=== PATIENT | male | born 1930 | race Caucasian/White ===

== ENCOUNTER 2017-11-20 15:08 | Inpatient (IN) ==
--- NOTE | 2017-11-20 17:03 | P.CON ---
History of Present Illness Service: Hospitalist Consult date: 11/20/17 Requesting Physician: Barrett Hartmann Reason for Consult: Assist with medical management Primary Care Provider: UNKNOWN History of Present Illness: This is an 87yo male patient with a PMHX significant for hypertension, atrial fibrillation on Eliquis, gout, depression, dyslipidemia and hx of CVA in 2016 who was transferred from [facility] and admitted to the inpatient psychiatric unit for severe depressive symptoms. Hospitalist services have been consulted to assist with medical management. Patient is seen and examined. Patient has not had an appetite and has lost 40lbs over the past 4 months. Patient states he does not think he will have any better appetite here. He says he does not belong here. He has made statements he would be better off . He denies any recent illness. He denies any headache or dizziness. He denies any chest pain or shortness of breath. He denies any nausea, vomiting or abdominal pain. He denies any urinary difficulties, diarrhea or constipation. Per review of the outside medical records, patient has been refusing to eat, drink or take his medications. His has scheduled him an appointment to be seen by Neurologist for possible dementia. Patients TSH at outside facility was 3.62. UA was negative. Review of Systems All other systems reviewed negative except as stated in HPI [facility] - History History Provided By: Patient, Medical Record - Medical History Medical History: Medical History (Last Updated 11/20/17 @ 17:45 by Trish Archibald) Atrial fibrillation BPH (benign prostatic hyperplasia) Depression Dyslipidemia Gout History of CVA (cerebrovascular accident) Hypertension - Surgical History Surgical History: Surgical History (Last Updated 11/20/17 @ 17:27 by Trish Archibald) Hx of cholecystectomy - Family History Family History: Family History (Last Updated 11/20/17 @ 17:28 by Trish Archibald) Other Hypertension - Social History I have reviewed the patient's Social History: Yes - Tobacco History Second Hand Smoke Exposure: No Tobacco Use In Past 30 Days: No Smoking Status: Never smoker - Alcohol History How Often Do You Have a Drink Containing Alcohol: Never - Substance Use History Substance History: No History of Abuse - Travel History Recent Travel in the [facility] Within the Last 8 Weeks: No Recent Travel Out of the Country Within the Last 8 Weeks: No Medications and Allergies Allergies Allergy/AdvReac Type Severity Reaction Status Date / Time hydrochlorothiazide Allergy Unknown Dry Eye Verified 11/20/17 15:46 hydralazine Allergy Dry Eye Verified 11/20/17 15:49 Physical Exam Vital signs: Vital Signs 11/20/17 16:31 Temperature 97.5 F L Respiratory Rate 17 Blood Pressure 169/90 H Pulse Oximetry 97 Narrative: GENERAL: WDWN elderly male patient, in no acute distress. Awake and alert. +Dowager's hump. SKIN: Warm and dry. HEAD: Atraumatic. Normocephalic. EYES: Pupils equal and round. No scleral icterus. No injection or drainage. ENT: No nasal bleeding or discharge. Mucous membranes pink and moist. NECK: Trachea midline. CARDIOVASCULAR: Regular rate and rhythm. RESPIRATORY: No accessory muscle use. Clear to auscultation. Breath sounds equal bilaterally. GASTROINTESTINAL: Abdomen soft, non-tender, nondistended. Hepatic and splenic margins not palpable. MUSCULOSKELETAL: Extremities without clubbing, cyanosis, or edema. No obvious deformities. NEUROLOGICAL: Awake and alert. No obvious cranial nerve deficits. Motor grossly within normal limits. Able to move all extremities spontaneously. Normal speech. PSYCHIATRIC: Depressed mood. Flat affect. Calm and cooperative. Assessment and Plan - Plan 87yo male patient with a PMHX significant for hypertension, atrial fibrillation on Eliquis, gout, depression, dyslipidemia and hx of CVA in 2015 who was transferred from [facility] and admitted to the inpatient psychiatric unit for severe depressive symptoms. Hospitalist services have been consulted to assist with medical management. 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 We will continue to follow along with you. Discussed Condition With: patient, nursing staff
[2017-11-20] MEDS: Metoprolol Tartrate 25 MG Tablet PO SCH (20:23)
[2017-11-20] MEDS ORDERED: Aluminum/Magnesium/Simethacone Susp 30 ML UDC PO PRN (20:45)
[2017-11-20] MEDS ORDERED: Acetaminophen 325 MG Tablet PO PRN (20:45)
[2017-11-20] MEDS ORDERED: diazePAM 2 MG Tablet PO SCH (21:00)
[2017-11-21 09:27] LABS: Calcium 8.6 mg/dL (8.5-10.1); Carbon Dioxide 28.6 meq/L (21.0-32.0); Potassium 3.8 meq/L (3.5-5.1)
[2017-11-21 09:54] LABS: Chol/HDL Ratio 1.9 Ratio; HDL Cholesterol 71.4 mg/dL (40.0-60.0)
[2017-11-21] MEDS: Doxazosin 1 MG Tablet PO SCH ×2 (10:06→10:07)
[2017-11-21] MEDS: amLODIPine 5 MG Tablet PO SCH (10:09)
[2017-11-21] MEDS: Metoprolol Tartrate 25 MG Tablet PO SCH ×2 (10:09→22:07)
[2017-11-21] MEDS: Multivitamin/Minerals Therapeutic Tablet PO SCH (10:10)
[2017-11-21] MEDS: Allopurinol 100 MG Tablet PO SCH (10:10)
--- NOTE | 2017-11-21 10:50 | P.DIET ---
Nutritional Evaluation Type of nutrition evaluation: initial Nutrition screening: [place] Screening comments: 11/20 [place] Poor PO Intake Subjective Subjective Comments: Pt reports a 40lb wt loss over the past 4 months, states he has no appetite. Objective - Diagnosis Depression - Objective [place] body weight: 85 kg % IBW: 85 Body Weight Used for Calculations: Actual (72.2kg) Energy Needs - Lower Range (kCal/kg): 28 Energy Needs - Upper Range (kCal/kg): 33 Lower Limit kCal/kg (kCals): 2,022 Upper Limit kCal/kg (kCals): 2,383 Lower Limit Protein Factor (Grams per Kg): 1.1 Upper Limit Protein Factor (Grams per Kg): 1.3 Lower Protein Needs (Protein): 79 Upper Protein Needs (Protein): 94 Fluid Factor (ml/kg): 28 Estimated Fluid Needs (ml): 2,022 Dietitian Reviewed in Medical Record: Current diet, Curent medications, Intake & Output, Labs Diet Order: Cardiac Objective Comments: PMH: HTN, Afib, gout, depression, HLD, CVA in 2016 Meds include: Theragran M Assessment Assessment: Pt at nutritional risk r/t dx and significant wt loss over the past 4 months. Pt 's nutritional needs as assessed above. Yesterday his po was poor but this morning he ate 100% of his breakfast. Ensure Enlive with be added to his trays, each bottle provides 350kcals and 20gms protein. Agree with multivitamin. If po intake is inadequate, recommend considering an appetite stimulant. Will monitor po intake, clinical course. Recommendations: Cardiac diet with Enlive TID Recommend considering an appetite stimulant Dietitian to Monitor: Lab values, Supplement acceptance, Intake & Output, Weight change, PO Intake, Medical course
--- NOTE | 2017-11-21 12:22 | P.HPPSY ---
Provisional Diagnosis Admission Date: November 20, 2017 15:19 Competence Certification of Person's Competence To Provide Express and Informed Consent I have personally examined Santos Saleh JR, a person being served at [facility] on, November 21, 2017 1216. Express and informed consent means consent voluntarily given in writing, by a competent person, after sufficient explanation and disclosure of the subject matter involved to enable the person to make a knowing and willful decision without any element of force, fraud, deceit, duress, or other form of constraint or coercion. This person is 18 years of age or older, is not now known to be incompetent to consent to treatment with a guardian advocate, and does not have a health care surrogate or proxy currently making medical treatment decisions. I have found this person to be one of the following: [X] Competent to provide express and informed consent, as defined above, for voluntary admission to this facility and is competent to provide express and informed consent for treatment. He/she has the consistent capacity to make well reasoned, willful, and knowing decisions concerning his or her medical or mental health treatment. The person fully and consistently understands the purpose of the admission for examination/placement and is fully capable of personally exercising all rights assured under [place] Incompetent to provide express and informed consent to voluntary admission, and this is incompetent to provide express and informed consent to treatment. The person must be transferred to involuntary status and a petition for a guardian advocate filed with the Circuit Court. [] Refusing to provide express and informed consent to voluntary admission but is competent to provide express and informed consent for treatment. The person must be discharged or transferred to involuntary status. Form shall be completed within 24 hours of a person's arrival at the receiving facility and filed in the clinical record of each person: 1. Admitted on a voluntary basis 2. Permitted to provide express and informed consent to his/her own treatment 3. Allowed to transfer from involuntary to voluntary status 4. Prior to permitting a person to consent to his or her own treatment after having been previously found incompetent to consent to treatment. History of Present Illness Capacity: Has capacity Chief Complaint: Depression History of Present Illness: Patient is an 87-year-old with no psychiatric history. He presents today to the psychiatric unit for symptoms of depression. His noticed changes in his mood and behavior and was the instigator for his admission. Patient says his symptoms began 6 months ago. He is rather vague and says "life got caught up with me." Mood has been low, patient has been housebound, he is sleeping well, appetite is poor, lost 40 pounds in the last couple months. Patient has suicidal ideation that is passive in nature without intent or plan. Energy is low. There are no panic attacks medication complains of a constant anxiety. [facility] was [facility]. Patient is alert and oriented x4 and denies any problems with ADLs or memory Past psych: No psychiatric history of depressive episodes besides [facility]. Denies a history of inpatient admissions, denies suicide attempts, denies cutting, denies therapy Past medical: See chart Past Famhx: Denies Past Social: Patient was active during the 1949s in the . He is and has 2 kids. Denies any alcohol or substance use - Inpatient Certification I certify that the inpatient services were ordered in accordance with Medicare regulations governing the order. This includes certification that hospital inpatient services are reasonable and necessary and in the case of services not specified as inpatient-only under 42 CFR 419.22(n), that they are appropriately provided as inpatient services in accordance to with the 2-midnight benchmark under 43 CFR 412.3(e) I certify that inpatient psychiatric hospital services are medically necessary. Evaluation and treatment and/or diagnostic testing are expected to improve the patient's condition. The patient needs on a daily basis, active treatment furnished directly by or requiring the supervision of inpatient psychiatric facility personnel. Plans for Post Hospital Care: Home Review of Systems All other systems reviewed negative except as stated [facility] - History History Provided By: Patient, Medical Record - Medical History Medical History: Medical History (Last Reviewed 11/21/17 @ 12:20 by Rakesh Emerson DO) Atrial fibrillation BPH (benign prostatic hyperplasia) Depression Dyslipidemia Gout History of CVA (cerebrovascular accident) Hypertension - Surgical History Surgical History: Surgical History (Last Reviewed 11/21/17 @ 12:20 by Rakesh Emerson DO) Hx of cholecystectomy - Family History Family History: Family History (Last Reviewed 11/20/17 @ 18:05 by Judith Logan RN) Other Hypertension - Tobacco History Second Hand Smoke Exposure: No Tobacco Use In Past 30 Days: No Smoking Status: Never smoker - Alcohol History How Often Do You Have a Drink Containing Alcohol: Never - Substance Use History Substance History: No History of Abuse - Travel History Recent Travel in the [place] Within the Last 8 Weeks: No Recent Travel Out of the Country Within the Last 8 Weeks: No Medications and Allergies Active Medications: Active Medications Acetaminophen (Tylenol) 650 mg PO Q4H PRN PRN Reason: Pain 1-5 or Temp >101F Al Hydrox/Mg Hydrox/Simethicone (Mag-Al Plus Susp Liq) 30 ml PO Q6H PRN PRN Reason: DYSPEPSIA Al Hydroxide/Mg Hydroxide (Milk Of Magnesia Liq) 30 ml PO DAILY PRN PRN Reason: CONSTIPATION Allopurinol (Zyloprim) 200 mg PO DAILY [facility] Last Admin: 11/21/17 10:10 Dose: 200 mg Amlodipine Besylate (Norvasc) 5 mg PO DAILY [facility] Last Admin: 11/21/17 10:09 Dose: 5 mg Apixaban (Eliquis) 2.5 mg PO BID [facility] Last Admin: 11/21/17 10:07 Dose: 2.5 mg Aspirin (Ecotrin) 81 mg PO DAILY [facility] Last Admin: 11/21/17 10:05 Dose: Not Given Atorvastatin Calcium (Lipitor) 40 mg PO HS [facility] Last Admin: 11/20/17 20:22 Dose: 40 mg Clonidine HCl (Catapres) 0.1 mg PO Q6H PRN PRN Reason: SBP>180, DBP>95 Diazepam (Valium) 2 mg PO HS [facility] Last Admin: 11/20/17 21:18 Dose: Not Given Diphenhydramine HCl (Benadryl) 50 mg PO HS PRN PRN Reason: INSOMNIA Diphenhydramine HCl (Benadryl Inj) 50 mg IM HS PRN PRN Reason: INSOMNIA Doxazosin Mesylate (Cardura) 1 mg PO DAILY [facility] Last Admin: 11/21/17 10:06 Dose: Not Given Doxazosin Mesylate (Cardura) 0.5 mg PO DAILY [facility] Last Admin: 11/21/17 10:07 Dose: Not Given Escitalopram Oxalate (Lexapro) 20 mg PO DAILY [facility] Hydroxyzine HCl (Atarax) 50 mg PO Q6H PRN PRN Reason: ANXIETY Metoprolol Tartrate (Lopressor) 25 mg PO BID [facility] Last Admin: 11/21/17 10:09 Dose: 25 mg Multivitamins/Minerals (Theragran-M) 1 tab PO DAILY [facility] Last Admin: 11/21/17 10:10 Dose: 1 tab Allergies Allergy/AdvReac Type Severity Reaction Status Date / Time hydrochlorothiazide Allergy Unknown Dry Eye Verified 11/20/17 15:46 hydralazine Allergy Dry Eye Verified 11/20/17 15:49 Results - Labs CBC & Chem 7: 11/21/17 08:00 Labs: Laboratory Results - last 24 hr 11/21/17 08:00 Sodium 141 Potassium 3.8 Chloride 106 Carbon Dioxide 28.6 Anion Gap 6 BUN 37 H Creatinine 1.83 H Estimated GFR 35 L Random Glucose 87 Calcium 8.6 Triglycerides 103 Cholesterol 136 LDL Cholesterol, Calc 44 HDL Cholesterol 71.4 H Cholesterol/HDL Ratio 1.90 Vitamin B12 538 Exam Vital signs: Vital Signs 11/20/17 16:31 11/21/17 05:27 Temperature 97.5 F L 97.9 F Pulse Rate 60 Respiratory Rate 17 18 Blood Pressure 169/90 H 148/65 H Pulse Oximetry 97 95 Intake & Output 11/20/17 11/21/17 11/21/17 18:59 06:59 18:59 Weight 72.2 kg Other: Weight On Admission 72.2 kg Mental Status Examination Appearance: Appropriate Consciousness: Alert Orientation: x4 Motor Activity: Other (Not tested) Speech: Hesitant, Slow Language: Adequate Fund of Knowledge: Adequate Attention and Concentration: Adequate Memory: Unremarkable Mood: Sad Affect: Blunt Thought Process & Associations: Intact Thought Content: Appropriate Hallucination Type: None Delusion Type: None Suicidal Ideation: Yes Suicidal Plan: No Suicidal Intention: No Homicidal Ideation: No Homicidal Plan: No Homicidal Intention: No Insight: Fair Judgment: Adequate Assessment and Plan - Assessment (1) Major depressive disorder, recurrent severe without psychotic features Code(s): F33.2 - Major depressive disorder, recurrent severe without psychotic features Status: Acute - Plan Plan: Estimated LOS: [] days Patient can sign voluntary. We will continue the Lexapro and start low-dose of Remeron 7.5 mg p.o. nightly for depression, sleep, and to stimulate appetite. Continue medical treatment as indicated Justification for Continued Inpatient Stay: Patient would decompensate in a less restrictive setting
[2017-11-21 14:23] LABS: Hemoglobin A1c 6.1 % (4.3-6.0)
--- NOTE | 2017-11-21 20:03 | CT ---
EXAM DATE: 11/21/2017 7:54 PM EDT AGE/SEX: 87 years / Male INDICATIONS: Trauma. Fell and hit head. CLINICAL DATA: This is the patient's initial encounter. Patient reports that signs and symptoms have been present for 1 day and indicates a pain score of 4/10. MEDICAL/SURGICAL HISTORY: Cardiovascular disease. Cerebrovascular disease. Hypertension. Cholecys tectomy. RADIATION DOSE: 40.49 CTDI (mGy) COMPARISON: . TECHNIQUE: CT of the head without contrast. Using automated exposure control and adjustment of the mA and/or kV according to patient size, radiation dose was kept as low as reasonably achievable to ob tain optimal diagnostic quality images. DICOM format image data is available electronically for revi ew and comparison. FINDINGS: Cerebrum: The ventricles are normal for age. No evidence of midline shift, mass lesion, hemorrhage or acute infarction. No extraaxial fluid collections are seen. Posterior Fossa: The cerebellum and brainstem are intact. The 4th ventricle is midline. The cerebe llopontine angle is unremarkable. Extracranial: The visualized portion of the orbits is intact. Skull: The calvaria is intact. No evidence of skull fracture. CONCLUSION: 1. Negative for acute process. . Electronically signed by: Edson Alejandro MD 11/21/2017 8:02 PM EDT
--- NOTE | 2017-11-21 21:12 | XR ---
EXAM DATE: 11/21/2017 12:00 AM EDT AGE/SEX: 87 years / Male INDICATIONS: Neck pain post fall CLINICAL DATA: This is the patient's initial encounter. Patient reports that signs and symptoms have been present for 1 day and indicates a pain score of 4/10. MEDICAL/SURGICAL HISTORY: . Cardiovascular disease. Cerebrovascular disease. Hypertension. . Cholecystectomy. COMPARISON: No prior exams available for comparison. FINDINGS: Minimal loss of vertebral body height at C5. Degenerative changes at C6-C7. AP and odontoid unremarka ble. Moderate left carotid calcifications. CONCLUSION: Degenerative changes, no fracture. Controlled flexion-extension films may be of benefit. Electronically signed by: Edson Alejandro MD 11/21/2017 9:11 PM EDT
--- NOTE | 2017-11-21 21:13 | XR ---
EXAM DATE: 11/21/2017 12:00 AM EDT AGE/SEX: 87 years / Male INDICATIONS: Patient Fell, Complains of back pain. CLINICAL DATA: This is the patient's initial encounter. Patient reports that signs and symptoms have been present for 1 day and indicates a pain score of 4/10. MEDICAL/SURGICAL HISTORY: . Cardiovascular disease. Cerebrovascular disease. . Hypertension. C holecystectomy. COMPARISON: No prior exams available for comparison. FINDINGS: There are degenerative changes in the mid thoracic spine. Mild scoliosis is evident. Osteopenia no ac washoe compression. There is minimal loss of vertebral body height at T6-T7 and T8. CONCLUSION: Mild degenerative changes with minimal loss of vertebral body height. MRI could be used to exclude ac washoe compression fracture if clinically indicated. Electronically signed by: Edson Alejandro MD 11/21/2017 9:11 PM EDT
--- NOTE | 2017-11-21 21:14 | XR ---
EXAM DATE: 11/21/2017 12:00 AM EDT AGE/SEX: 87 years / Male INDICATIONS: Low back pain post fall CLINICAL DATA: This is the patient's initial encounter. Patient reports that signs and symptoms have been present for 1 day and indicates a pain score of 3/10. MEDICAL/SURGICAL HISTORY: . Cardiovascular disease. Cerebrovascular disease. Hypertension. . Cholecystectomy. COMPARISON: No prior exams available for comparison. FINDINGS: Minimal loss of vertebral body height at T12. Mild loss of disc space height at L5-S1. Mild degenerat jacinto changes of facets. SI joints are normal. CONCLUSION: Minimal loss of vertebral body height T12 age indeterminate. Electronically signed by: Edson Alejandro MD 11/21/2017 9:12 PM EDT
[2017-11-21] MEDS: Mirtazapine 15 MG Tablet PO SCH (22:07)
[2017-11-22] MEDS: Doxazosin 1 MG Tablet PO SCH ×2 (08:39)
[2017-11-22] MEDS: amLODIPine 5 MG Tablet PO SCH (08:39)
[2017-11-22] MEDS: Multivitamin/Minerals Therapeutic Tablet PO SCH (08:39)
[2017-11-22] MEDS: Allopurinol 100 MG Tablet PO SCH (08:40)
[2017-11-22] MEDS: Metoprolol Tartrate 25 MG Tablet PO SCH ×2 (08:41→21:47)
[2017-11-22] MEDS ORDERED: Aluminum/Magnesium/Simethacone Susp 30 ML UDC PO PRN (10:52)
--- NOTE | 2017-11-22 11:01 | P.PNPSY ---
Subjective Chief Complaint: Depression Remarks: Patient seen in day room with floor staff, chart reviewed, patient compliant medication. Patient initially admitted by Dr. Rakesh Emerson's H&P reviewed and agreed with. Dr. Emerson has low the patient signed voluntary. I agree with that. I have also finished the initial psychiatric admission template orders. Patient is seen in day room with floor staff. He is alert overall oriented quite depressed with vague suicidal ideation. He states he is been to the his present for about 20 years she is about 16 years younger than him and appears may be some issues between the 2 of them. With his being somewhat sedentary and she wanted to be somewhat active. Medications have been reviewed we will continue them no change at the present time Review of Systems All other systems reviewed negative except as stated in HPI Mental Status Examination Appearance: Appropriate Consciousness: Alert Orientation: x4 Motor Activity: Other (Not tested) Speech: Hesitant, Slow Language: Adequate Fund of Knowledge: Adequate Attention and Concentration: Adequate Memory: Unremarkable Mood: Sad Affect: Other (Decreased range and intensity) Thought Process & Associations: Intact Thought Content: Appropriate Hallucination Type: None Delusion Type: None Suicidal Ideation: Yes Suicidal Plan: No Suicidal Intention: No Homicidal Ideation: No Homicidal Plan: No Homicidal Intention: No Insight: Fair Judgment: Adequate Assessment and Plan - Assessment (1) Major depressive disorder, recurrent severe without psychotic features Code(s): F33.2 - Major depressive disorder, recurrent severe without psychotic features Status: Acute - Plan Plan: Patient remains depressed and suicidal, though compliant medication no behavior problems at this time for now continue treatment Justification for Continued Inpatient Stay: At this time patient would decompensate a place to the lower level of care Discharge Planning: To be determined probable return home
--- NOTE | 2017-11-22 12:44 | P.PN ---
Subjective Interval history: Follow-up on patient with atrial fibrillation, hypertension, previous CVA. Patient seen and examined. Discussed with nursing staff, patient had a fall yesterday. RN today does not know specifics surrounding the fall. Patient encountered in his room lying in his bed. He denies any complaints of dizziness , lightheadedness, chest pain or shortness of breath preceding the fall. States he does not know why he fell. He denies any loss of consciousness or head injury. He tells me he just wants to sleep. He denies any complaints of pain. Physical Exam Vital signs: Vital Signs 11/21/17 17:00 11/21/17 17:52 11/21/17 19:57 Temperature 98.4 F 98.4 F 98.6 F Pulse Rate 62 62 72 Respiratory Rate 16 18 18 Blood Pressure 110/57 L 135/61 127/86 Pulse Oximetry 96 96 95 11/21/17 23:55 11/22/17 04:00 Temperature 97.6 F 98.7 F Pulse Rate 81 57 L Respiratory Rate 20 14 Blood Pressure 112/68 132/61 Pulse Oximetry 93 L 95 Intake & Output 11/21/17 11/22/17 11/22/17 18:59 06:59 18:59 Weight 69.2 kg Narrative: GENERAL: WDWN elderly male patient, in no acute distress. Awake and alert. +Dowager's hump. SKIN: Warm and dry. HEENT: Normocephalic. Pupils equal and round. No scleral icterus. No injection or drainage. No nasal bleeding or discharge. Mucous membranes pink and moist. NECK: Trachea midline. CARDIOVASCULAR: Regular rate and rhythm. RESPIRATORY: No accessory muscle use. Clear to auscultation. Breath sounds equal bilaterally. GASTROINTESTINAL: Abdomen soft, non-tender, nondistended. +BS. MUSCULOSKELETAL: Extremities without clubbing, cyanosis, or edema. No obvious deformities. NEUROLOGICAL: Awake and alert. No obvious cranial nerve deficits. Motor grossly within normal limits. Able to move all extremities spontaneously. Normal speech. PSYCHIATRIC: Depressed mood. Dysthymic. Flat affect. Calm and cooperative. Results - Labs CBC & Chem 7: 11/21/17 08:00 Laboratory Results - last 24 hr 11/21/17 08:09 Hemoglobin A1c 6.1 H - Imaging Impressions Cervical Spine X-Ray 11/21/17 00:00 CONCLUSION: Degenerative changes, no fracture. Controlled flexion-extension films may be of benefit. Head CT 11/21/17 00:00 CONCLUSION: 1. Negative for acute process. . Lumbar Spine X-Ray 11/21/17 00:00 CONCLUSION: Minimal loss of vertebral body height T12 age indeterminate. Thoracic Spine X-Ray 11/21/17 00:00 CONCLUSION: Mild degenerative changes with minimal loss of vertebral body height. MRI could be used to exclude acute compression fracture if clinically indicated. Assessment and Plan - Plan 87yo male patient with a PMHX significant for hypertension, atrial fibrillation on Eliquis, gout, depression, dyslipidemia and hx of CVA in 2016 who was transferred from [facility] and admitted to the inpatient psychiatric unit for severe depressive symptoms. Hospitalist services have been consulted to assist with medical management. Severe depression Wt loss Anorexia TSH WNL -Management per psychiatric team -Regional Production Manager consulted. Enlive TID added with meals. -MVI daily s/p fall, unclear events surrounding the fall patient did have low BP yesterday 105/56, also mild bradycardia noted this am with HR 57 imaging reviewed, no e/o acute fracture, evidence of old compression fractures, osteopenia -check orthostatic BP measurements -decrease Metoprolol dose to 12.5mg with hold parameters -May need to further reduce blood pressure medications. Additionally, patient also on Cardura for BPH which may need to be reduced. -Fall precaution -PT eval/tx -Continue to monitor BP closely -begin Atrial fibrillation on Eliquis CHADSVASc score 6 -continue on Metoprolol and Eliquis -With such a high CHADSVASc score, patient would benefit from anticoagulation however may need to consider discontinuation of Eliquis if patient continues to fall. Will have PT evaluate patient to see how steady he appears on his feet. -monitor HR Hypertension -continue on Norvasc 5mg daily. Metoprolol 25mg BID dose decreased due to low BPs. May need to decrease or lower dose of Norvasc. -Clonidine 0.1mg po prn with parameters -continue to monitor BP and adjust treatment accordingly Dyslipidemia -Lipitor 40mg daily Hx of CVA, stable -ASA and statin therapy daily BPH -continue on Doxazosin. May need to decrease dose or discontinue based on orthostatic BP measurements. Gout -continue on Allopurinol DVT prophylaxis -patient is on Eliquis Code Status: Full Discussed Condition With: patient, nursing staff
--- NOTE | 2017-11-22 13:44 | P.TTN ---
- Patient Problems Problems: 1. Discharge planning 2. Medication compliance 3. Knowledge deficit 4. Lack of coping skills - Progress Toward Goals Provider Present: Dr. Hussein Hartmann Provider Input: 11/22/17: Pt new to this MD, assessment by this MD has not been completed. Group Spec/RT/OT/SCOTT Present: Samantha Duarte, GPS, Uziel Elaine, OT Group Spec/RT/OT/SCOTT Input: 11/22: Pt is new to unit, minimal hx. Additional Input: 11/22/17: Pt new to this MD, assessment by this MD has not been completed. Counselor and MD to assess pt today. - Documentation Teaching Recipient: Patient
[2017-11-22] MEDS: Mirtazapine 15 MG Tablet PO SCH (21:48)
[2017-11-23 07:49] LABS: Calcium 8.6 mg/dL (8.5-10.1); Carbon Dioxide 27.8 meq/L (21.0-32.0)
[2017-11-23 07:55] LABS: Chol/HDL Ratio 1.77 Ratio; HDL Cholesterol 52.9 mg/dL (40.0-60.0)
[2017-11-23] MEDS: Doxazosin 1 MG Tablet PO SCH ×2 (09:44→09:45)
[2017-11-23] MEDS: Metoprolol Tartrate 25 MG Tablet PO SCH ×3 (09:45→22:30)
[2017-11-23] MEDS: Multivitamin/Minerals Therapeutic Tablet PO SCH (09:46)
[2017-11-23] MEDS: Allopurinol 100 MG Tablet PO SCH (09:46)
[2017-11-23] MEDS: amLODIPine 5 MG Tablet PO SCH (09:46)
--- NOTE | 2017-11-23 11:39 | P.PNPSY ---
Subjective Chief Complaint: Depression Remarks: Patient seen in day room with nurse Simran, patient sitting quietly. Chart reviewed. Patient compliant medications. While patient was allowed to sign voluntary he did not do that yesterday. I talked with the patient today he is not willing to sign voluntary and I would just to sign involuntary. Patient remains depressed with marked decreased range and intensity of affect is very sad face and poor eye contact he states he has not talked to his . Though he acknowledges having a difficult relationship with her at this time. Will increase patient's Remeron to 15 mg at bedtime Review of Systems All other systems reviewed negative except as stated in HPI Mental Status Examination Appearance: Appropriate Consciousness: Alert Orientation: x4 Motor Activity: Other (Not tested) Speech: Hesitant, Slow Language: Adequate Fund of Knowledge: Adequate Attention and Concentration: Adequate Memory: Unremarkable Mood: Sad Affect: Other (Decreased range and intensity) Thought Process & Associations: Intact Thought Content: Appropriate Hallucination Type: None Delusion Type: None Suicidal Ideation: Yes Suicidal Plan: No Suicidal Intention: No Homicidal Ideation: No Homicidal Plan: No Homicidal Intention: No Insight: Fair Judgment: Adequate Assessment and Plan - Assessment (1) Major depressive disorder, recurrent severe without psychotic features Code(s): F33.2 - Major depressive disorder, recurrent severe without psychotic features Status: Acute - Plan Plan: Patient remains depressed and melancholic please see medication adjustments above Justification for Continued Inpatient Stay: At this time patient would decompensate if placed in a lower level of care Discharge Planning: To be determined Request Healthcare Surrogate/Guardian Advocate?: No
--- NOTE | 2017-11-23 11:40 | P.PN ---
Subjective Interval history: Follow-up visit for A. fib, HTN, prior CVA and suspected underlying CKD. Patient seen and examined up in wheelchair in no acute distress, oriented to time, place and self. Denies pain, shortness of breath, cough, fevers, nausea or vomiting. Reports burning with urination. No BM in 3-4days. Physical Exam Vital signs: Vital Signs 11/22/17 12:00 11/22/17 18:30 11/23/17 06:00 Temperature 98.8 F 99 F 98.5 F Pulse Rate 54 L 86 63 Respiratory Rate 17 15 18 Blood Pressure 81/42 L 113/59 L 124/59 L Pulse Oximetry 90 L 94 L Narrative: GENERAL: Elderly male patient, in no acute distress. Awake and alert. SKIN: Warm and dry. HEENT: Normocephalic. Pupils equal and round. No scleral icterus. No injection or drainage. No nasal bleeding or discharge. Mucous membranes pink and moist. NECK: Trachea midline. CARDIOVASCULAR: Regular rate and rhythm. RESPIRATORY: No accessory muscle use. Clear to auscultation. Breath sounds equal bilaterally. GASTROINTESTINAL: Abdomen soft, non-tender, nondistended. +BS. MUSCULOSKELETAL: Extremities without clubbing, cyanosis, or edema. No obvious deformities. NEUROLOGICAL: Awake and alert. No obvious cranial nerve deficits. Motor grossly within normal limits. Able to move all extremities spontaneously. Normal speech. PSYCHIATRIC: Depressed mood. Dysthymic. Flat affect. Calm and cooperative. Results - Labs CBC & Chem 7: 11/23/17 06:27 Laboratory Results - last 24 hr 11/23/17 06:27 Sodium 144 Potassium 4.0 Chloride 108 H Carbon Dioxide 27.8 Anion Gap 8 BUN 47 H Creatinine 1.89 H Estimated GFR 34 L Random Glucose 83 Calcium 8.6 Triglycerides 110 Cholesterol 94 L LDL Cholesterol, Calc 19 HDL Cholesterol 52.9 Cholesterol/HDL Ratio 1.77 Assessment and Plan - Plan 87yo male patient with a PMHX significant for hypertension, atrial fibrillation on Eliquis, gout, depression, dyslipidemia and hx of CVA in 2015 who was transferred from [facility] and admitted to the inpatient psychiatric unit for severe depressive symptoms. Hospitalist services have been consulted to assist with medical management. Severe depression Wt loss Anorexia TSH WNL -Management per psychiatric team -Traffic Agent following. Enlive TID added with meals. -MVI daily s/p fall, unclear events surrounding the fall imaging reviewed, no e/o acute fracture, evidence of old compression fractures, osteopenia -+ orthostatic BP's, check and treat only sitting BP's -decrease Metoprolol dose to 12.5mg with hold parameters -May need to further reduce blood pressure medications. Additionally, patient also on Cardura for BPH which may need to be reduced. -Fall precaution -PT eval/tx -Continue to monitor BP closely Atrial fibrillation on Eliquis CHADSVASc score 6 -continue on Metoprolol and Eliquis -With such a high CHADSVASc score, patient would benefit from anticoagulation however may need to consider discontinuation of Eliquis if patient continues to fall. Will have PT evaluate patient to see how steady he appears on his feet. -monitor HR Hypertension -continue on Norvasc 5mg daily. Metoprolol 12.5mg BID. -Clonidine 0.1mg po prn with parameters -continue to monitor BP and adjust treatment accordingly Possible underlying CKD - No prior labs to compare to - Creatinine today with slight increase - Continue to monitor intermittently Dyslipidemia -Lipitor 40mg daily Hx of CVA, stable -ASA and statin therapy daily BPH -continue on Doxazosin. May need to decrease dose or discontinue based on orthostatic BP measurements. Gout -continue on Allopurinol Constipation - Start stool softener, PRN laxative DVT prophylaxis -patient is on Eliquis Discussed Condition With: Patient and RN
[2017-11-23 15:28] LABS: Bilirubin,Urine Negative (Negative); Calcium Oxalate Crystals,Urine Rare /hpf; Clarity,Urine Hazy (Clear); Glucose,Urine (UA) Negative (Negative); Hyaline Casts,Urine 41 /lpf (0-3); Leukocyte Esterase,Urine Negative (Negative); Mucus,Urine Few /lpf (Occasional); Nitrite,Urine Negative (Negative); Specific Gravity,Urine 1.021 (1.002-1.035)
[2017-11-23 15:32] LABS: Color,Urine Dark-Yellow (Yellw/Straw)
[2017-11-23] MEDS: Mirtazapine 15 MG Tablet PO SCH (22:26)
[2017-11-23] MEDS: diazePAM 2 MG Tablet PO SCH (22:26)
[2017-11-23] MEDS: Senna/Docusate Sodium 8.6/50 MG Tablet PO SCH (22:26)
[2017-11-24] MEDS: Metoprolol Tartrate 25 MG Tablet PO SCH ×2 (09:00→23:04)
[2017-11-24] MEDS: amLODIPine 5 MG Tablet PO SCH (09:01)
[2017-11-24] MEDS: Senna/Docusate Sodium 8.6/50 MG Tablet PO SCH ×2 (09:01→22:14)
[2017-11-24] MEDS: Multivitamin/Minerals Therapeutic Tablet PO SCH (09:01)
[2017-11-24] MEDS: Allopurinol 100 MG Tablet PO SCH (09:02)
[2017-11-24] MEDS: Doxazosin 1 MG Tablet PO SCH ×2 (09:05)
--- NOTE | 2017-11-24 11:44 | P.PN ---
Subjective Interval history: Follow-up visit for HTN, A. fib, CKD and positive orthostatics. Nurse reports that patient is requesting he be discharged home as they have made arrangements to care for patient at home. Psychiatrist to have a family conference today regarding discharge. Patient seen and examined in his room resting in bed and appears to be in no acute distress. He reports that he is "tired" and requesting to be left alone to rest. He denies any pain or discomfort at the moment, dizziness, lightheadedness. Physical Exam Vital signs: Vital Signs 11/23/17 17:40 11/23/17 22:32 11/24/17 05:44 Temperature 97.7 F 97.9 F Pulse Rate 61 61 63 Respiratory Rate 18 15 Blood Pressure 95/50 L 136/63 112/56 L Pulse Oximetry 96 95 Intake & Output 11/23/17 11/24/17 11/24/17 18:59 06:59 18:59 Intake Total 720 / 720 Balance 720 / 720 Intake: Oral 720 / 720 Narrative: GENERAL: Elderly male patient, in no acute distress. Awake and alert. SKIN: Warm and dry. HEENT: Normocephalic. Pupils equal and round. No scleral icterus. No injection or drainage. No nasal bleeding or discharge. Mucous membranes pink and moist. NECK: Trachea midline. CARDIOVASCULAR: Regular rate and rhythm. RESPIRATORY: No accessory muscle use. Clear to auscultation. Breath sounds equal bilaterally. GASTROINTESTINAL: Abdomen soft, non-tender, nondistended. +BS. MUSCULOSKELETAL: Extremities without clubbing, cyanosis, or edema. No obvious deformities. NEUROLOGICAL: Awake and alert. No obvious cranial nerve deficits. Motor grossly within normal limits. Able to move all extremities spontaneously. Normal speech. PSYCHIATRIC: Depressed mood. Flat affect. Calm and cooperative. Results - Labs CBC & Chem 7: 11/23/17 06:27 Laboratory Results - last 24 hr 11/23/17 11/23/17 06:27 14:49 Hemoglobin A1c 6.0 Urine Color Dark-yellow H Urine Clarity Hazy H Urine pH 5.0 Ur Specific [place] 1.021 Urine Protein Negative Urine Glucose (UA) Negative Urine Ketones Negative Urine Occult Blood Negative Urine Nitrate Negative Urine Bilirubin Negative Urine Urobilinogen 2.0 H Ur Leukocyte Esterase Negative Urine WBC 2 Calcium Oxalate Crystal Rare H Hyaline Casts 41 Urine Mucus Few H Micro UA Comment Culture not ind Ur Microscopic Review Not Reportable Urine Culture Comments Culture not ind Assessment and Plan - Plan 87yo male patient with a PMHX significant for hypertension, atrial fibrillation on Eliquis, gout, depression, dyslipidemia and hx of CVA in 2016 who was transferred from [facility] and admitted to the inpatient psychiatric unit for severe depressive symptoms. Hospitalist services have been consulted to assist with medical management. Severe depression Wt loss Anorexia TSH WNL -Management per psychiatric team -Paving Supervisor following. Enlive TID added with meals. -MVI daily s/p fall, unclear events surrounding the fall imaging reviewed, no e/o acute fracture, evidence of old compression fractures, osteopenia -+ orthostatic BP's, check and treat only sitting BP's -Continue low-dose metoprolol 12.5mg with hold parameters -BP improved this morning, patient asymptomatic. -Fall precaution -PT eval/tx -Continue to monitor BP closely Atrial fibrillation on Eliquis CHADSVASc score 6 -continue on Metoprolol and Eliquis -With such a high CHADSVASc score, patient would benefit from anticoagulation however may need to consider discontinuation of Eliquis if patient continues to fall. Will have PT evaluate patient to see how steady he appears on his feet. -monitor HR Hypertension -continue on Norvasc 5mg daily. Metoprolol 12.5mg BID. -Clonidine 0.1mg po prn with parameters -continue to monitor BP and adjust treatment accordingly Possible underlying CKD - No prior labs to compare to - Creatinine today with slight increase - Continue to monitor intermittently Dyslipidemia -Lipitor 40mg daily Hx of CVA, stable -ASA and statin therapy daily BPH -continue on Doxazosin. May need to decrease dose or discontinue based on orthostatic BP measurements. Gout -continue on Allopurinol Constipation - Start stool softener, PRN laxative DVT prophylaxis -patient is on Eliquis Patient essentially medically stable. Psychiatry to arrange family meeting tomorrow for possible discharge home. Patient will need to follow-up lab work regarding renal function as outpatient. Discussed Condition With: Patient and nursing staff.
--- NOTE | 2017-11-24 13:01 | P.PNPSY ---
Subjective Chief Complaint: Depression Remarks: Patient seen in his room with floor staff, chart reviewed, patient napping though arousable continues quite depressed with marked decreased range and intensity of his affect and poor eye contact he acknowledges his depression. He is vague about suicidality. Though he denies voices. He states he would like to be return home if possible. He is compliant with his medications. We then call patient's on the phone also participating with his counselor Barbara and nurse Chioma. is concerned about her she realizes continues depressed. She was confused about the various home health care companies realizing now that the outcome appears more hospice oriented. Considering the confusion related to this I feel that his best severe range of a family meeting with this lady thus we will meet with her tomorrow at about 1230 after she visits with her to discuss medications diagnosis treatment and discharge planning whether to be return home with home health care visiting nurses or more extended care facility Review of Systems All other systems reviewed negative except as stated in HPI Mental Status Examination Appearance: Appropriate Consciousness: Alert Orientation: x4 Motor Activity: Other (Not tested) Speech: Hesitant, Slow Language: Adequate Fund of Knowledge: Adequate Attention and Concentration: Adequate Memory: Unremarkable Mood: Sad Affect: Other (Decreased range and intensity) Thought Process & Associations: Intact Thought Content: Appropriate Hallucination Type: None Delusion Type: None Suicidal Ideation: Yes Suicidal Plan: No Suicidal Intention: No Homicidal Ideation: No Homicidal Plan: No Homicidal Intention: No Insight: Fair Judgment: Adequate Assessment and Plan - Assessment (1) Major depressive disorder, recurrent severe without psychotic features Code(s): F33.2 - Major depressive disorder, recurrent severe without psychotic features Status: Acute - Plan Plan: Patient remains depressed and melancholic with vague suicidal ideation. For now continue treatment. Meet with patient's tomorrow Justification for Continued Inpatient Stay: Patient remains severely depressed needing much intervention assistance with all his activities. At this time he would decompensate a place to a lower level of care Discharge Planning: To be determined Request Healthcare Surrogate/Guardian Advocate?: No
[2017-11-24 18:21] VITALS: RESP 16
[2017-11-24] MEDS: diazePAM 2 MG Tablet PO SCH (22:14)
[2017-11-24] MEDS: Mirtazapine 15 MG Tablet PO SCH (22:15)
[2017-11-25 07:12] VITALS: BP 117/63; PULSE 62; TEMP 98; O2SAT 94
--- NOTE | 2017-11-25 09:55 | P.DCO ---
- Physical Therapy Order: Evaluate and treat - Occupational Therapy Order: Evaluate and treat - Speech Therapy Order: To improve: Speech and communication skills - Home Health Nursing Order: Medical education, Medication education-adverse effect - Home Health Aide Order: To assist in: Bathing and personal care - Analytical Chemistry Teacher Order: To evaluate: Support services - Case Management Consult No - Certification I have seen patient Santos Saleh JR on 11/25/17. My clinical findings support the need for the requested home health care services because: Limited mobility due to disease progression, Limited ability to care for self I certify that my clinical findings support that this patient is homebound because: Impaired cognitive ability/safety
[2017-11-25 10:11] LABS: Calcium 8.5 mg/dL (8.5-10.1); Carbon Dioxide 27.4 meq/L (21.0-32.0); Potassium 4.3 meq/L (3.5-5.1)
[2017-11-25] MEDS: Doxazosin 1 MG Tablet PO SCH (10:40)
[2017-11-25] MEDS: Metoprolol Tartrate 25 MG Tablet PO SCH (10:41)
[2017-11-25] MEDS: Senna/Docusate Sodium 8.6/50 MG Tablet PO SCH (10:48)
[2017-11-25] MEDS: Multivitamin/Minerals Therapeutic Tablet PO SCH (10:48)
[2017-11-25] MEDS: amLODIPine 5 MG Tablet PO SCH (10:48)
[2017-11-25] MEDS: Allopurinol 100 MG Tablet PO SCH (10:50)
--- NOTE | 2017-11-25 10:58 | P.DSPSY ---
Psychiatry Discharge Summary Inpatient Psychiatric care?: Yes Advance Directives: No Mental Health Advance Directive: No Health Care Proxy: No - Admission Admission Date: November 20, 2017 15:19 - Admission Diagnosis (1) Major depressive disorder, recurrent severe without psychotic features Code(s): F33.2 - Major depressive disorder, recurrent severe without psychotic features Brief History: Patient is an 87-year-old with no psychiatric history. He presents today to the psychiatric unit for symptoms of depression. His noticed changes in his mood and behavior and was the instigator for his admission. Patient says his symptoms began 6 months ago. He is rather vague and says "life got caught up with me." Mood has been low, patient has been housebound, he is sleeping well, appetite is poor, lost 40 pounds in the last couple months. Patient has suicidal ideation that is passive in nature without intent or plan. Energy is low. There are no panic attacks medication complains of a constant anxiety. [facility] and was started on Lex[facility]. Patient is alert and oriented x4 and denies any problems with ADLs or memory Past psych: No psychiatric history of depressive episodes besides [facility]. Denies a history of inpatient admissions, denies suicide attempts, denies cutting, denies therapy Past medical: See chart Past Famhx: Denies Past Social: Patient was active during the 1950s in the . He is and has 2 kids. Denies any alcohol or substance use Tobacco Use In Past 30 Days: No How Often Do You Have a Drink Containing Alcohol: Never Hospital Course: Patient's hospital course was uneventful, his initial severe depression have gradually lessened. His suicidality has resolved but depression persists but is improving remains somewhat melancholic but there is also improving. He is compliant with his medications. We have had discussions with patient's and met with her also. She feels patient is able to come home is willing to have him home. Patient is willing to go home with his also at this time. He is able contract to do no harm. Thus patient will be discharged today to his family will be referred to home health care for further observation and assessment and monitoring. He will be given Rx times 1 month follow-up medical and mental health services through the home health care - Discharge Discharge Date: 11/25/17 Discharge Disposition: Home - Discharge Instructions Discharge Diet: Regular Diet Activities You Can Perform: Regular- No Restrictions - Discharge Time > 30 minutes Mental Status Examination Appearance: Appropriate Consciousness: Alert Orientation: x4 Motor Activity: Other (Not tested) Speech: Hesitant, Slow Language: Adequate Fund of Knowledge: Adequate Attention and Concentration: Adequate Memory: Unremarkable Mood: Sad Affect: Other (Decreased range and intensity) Thought Process & Associations: Intact Thought Content: Appropriate Hallucination Type: None Delusion Type: None Suicidal Ideation: Yes Suicidal Plan: No Suicidal Intention: No Homicidal Ideation: No Homicidal Plan: No Homicidal Intention: No Insight: Fair Judgment: Adequate Discharge/Advance Care Plan - Results Vital Signs: Last Vital Signs Temp 98.0 F 11/25/17 07:08 Pulse 62 11/25/17 07:08 Resp 16 11/25/17 07:08 BP 117/63 11/25/17 07:08 Pulse Ox 94 L 11/25/17 07:08 Lab Results: Abnormal Lab Results 11/25/17 07:45 Sodium 144 Potassium 4.3 Chloride 109 H Carbon Dioxide 27.4 Anion Gap 8 BUN 46 H Creatinine 1.80 H Estimated GFR 36 L Random Glucose 90 Calcium 8.5 Laboratory Results Hemoglobin A1c 6.0 % (4.3-6.0) 11/23/17 06:27 Triglycerides 110 mg/dL (42-150) 11/23/17 06:27 Cholesterol 94 mg/dL (120-200) L 11/23/17 06:27 LDL Cholesterol, Calc 19 mg/dL (0-99) 11/23/17 06:27 HDL Cholesterol 52.9 mg/dL (40.0-60.0) 11/23/17 06:27 Urine Culture Comments Culture not ind 11/23/17 14:49 Summary of Procedures: None done Imaging: ITS Impressions Cervical Spine X-Ray 11/21/17 00:00 CONCLUSION: Degenerative changes, no fracture. Controlled flexion-extension films may be of benefit. Head CT 11/21/17 00:00 CONCLUSION: 1. Negative for acute process. . Lumbar Spine X-Ray 11/21/17 00:00 CONCLUSION: Minimal loss of vertebral body height T12 age indeterminate. Thoracic Spine X-Ray 11/21/17 00:00 CONCLUSION: Mild degenerative changes with minimal loss of vertebral body height. MRI could be used to exclude acute compression fracture if clinically indicated. Pending Results: None - Medications Number of antipsychotic medications at discharge: 0 - Discharge Care Plan Goals to Promote Your Health: * To prevent worsening of your condition and complications * To maintain your health at the optimal level Directions to Meet Your Goals: Take your medications as prescribed Follow your dietary instruction Follow activity as directed Keep your appointments as scheduled Take your immunizations and boosters as scheduled If your symptoms worsen call your PCP, if no PCP go to Urgent Care Center or Emergency Room For 31/08 questions related to your inpatient stay or results of tests pending at discharge, please contact Dr. Barrett Hartmann MD at Smoking is Dangerous to Your Health. Avoid second hand smoking
== END 2017-11-25 13:30 | disposition home health service (06) ==
LOC: H250 15:19
PROVIDERS: ADMIT Psychiatry & Neurology Psychiatry; ATTEND Psychiatry & Neurology Psychiatry